=== PATIENT | male | born 1950 | race Caucasian/White ===

== ENCOUNTER 2020-08-29 13:37 | Emergency (ER) | payer OTHER, SELFPAY ==
[2020-08-29 13:40] VITALS: BP 135/103; PULSE 88; RESP 15; TEMP 36.9; O2SAT 98; BMI 19.2
--- NOTE | 2020-08-29 13:54 | ED.GENADULT ---
HPI - General Adult General Chief complaint: Skin/Abscess/Foreign Body Stated complaint: Rash From Head to Toe, Losing Teeth Time Seen by Provider: 08/29/20 13:39 Source: patient Mode of arrival: Ambulatory Limitations: no limitations History of Present Illness HPI narrative: Patient is a 70-year-old male. Has had radiation secondary to head and neck cancer many years ago. He states that he was told that his teeth would start to have problems at some point in the future and he states that over the past several weeks he has noticed that his teeth have been following up. He states he is attempted to call intact the [place] and has also tried to contact local dental providers but has not been able to get in to see anyone. He denies any pain. He is also here for a rash. He states that several weeks ago it started with a rash on his right lower extremity and since that time and has progressed to the rest of his body. He denies any fevers. No recent travel. No new exposures. No recent antibiotics. States has been using topical steroids without any improvement. He states that it is itching. He has not followed up with his primary doctor regarding his Related Data Previous Rx's Medication Instructions Recorded prednisone 40 mg PO DAILY 7 Days #14 tab 08/29/20 Allergies Allergy/AdvReac Type Severity Reaction Status Date / Time No Known Drug Allergies Allergy Verified 08/29/20 13:45 Review of Systems Constitutional Constitutional: Denies fever(s) ENT Comments: Teeth falling out Cardiovascular Cardiovascular: Denies chest pain and Denies dyspnea Respiratory Respiratory: Denies dyspnea Gastrointestinal Gastrointestinal: Denies abdominal pain, Denies nausea and Denies vomiting Genitourinary Genitourinary: Denies dysuria Genitourinary: Denies dysuria Musculoskeletal Musculoskeletal: Denies arthralgias and Denies myalgias Integumentary/Breasts Skin/Breast: Reports pruritus and Reports rash Neurologic Neurologic: Denies behavioral changes Psychiatric Psychiatric: Denies behavioral changes Hematologic/Lymphatic Hematologic/Lymphatic: Denies easy bleeding and Denies easy bruising Allergic/Immunologic Allergic/Immunologic: Denies urticaria Patient History Medical History Lung cancer Social History Smoking Status: Unknown if ever smoked Smoking Status: Unknown if ever smoked alcohol intake frequency: holidays/special occasions only Substance Use Type: does not use Exam Initial Vital Signs Initial Vital Signs: Vital Signs Temperature 98.5 F 08/29/20 13:40 Pulse Rate 88 08/29/20 13:40 Respiratory Rate 15 08/29/20 13:40 Blood Pressure 135/103 H 08/29/20 13:40 Pulse Oximetry 98 08/29/20 13:40 Const General: cooperative Limitations: mental status not altered HENMT Head: normal to inspection and normocephalic Mouth: oral mucosae normal and tongue normal Teeth and gingiva: poor dentition and other (Multiple missing teeth) Resp Effort & Inspection: normal respiratory effort Cardio Rate: regular rate Skin Other: Patient has areas of purpura located on bilateral lower extremities in punctate red lesions located on his abdomen and back and upper neck. No pustules. No vesicles. Neuro General: patient alert and patient awake Extrem General: capillary refill normal Psych Appearance: grossly normal and well kempt Course Orders Ordered: ED Orders 08/29/20 14:00 Basic Metabolic Panel Stat Complete Blood Count AUTO DIFF Stat Vital Signs Vital signs: Vital Signs - 8 hr 08/29/20 13:40 Temperature 98.5 F Pulse Rate 88 Respiratory Rate 15 Blood Pressure 135/103 H Pulse Oximetry 98 Medical Decision Making Medical Records Medical records reviewed: Yes I reviewed the patient's medical records. Lab Data Lab results reviewed: Yes I reviewed the patient's lab results. Result diagrams: 08/29/20 14:00 08/29/20 14:00 Labs: Lab Results 08/29/20 08/29/20 Range/Units 14:00 14:00 WBC 6.7 (4.5-11.0) X10^3/uL RBC 5.18 (4.5-5.9) X10^6/uL Hgb 14.1 (13.5-17.5) g/dL Hct 42.6 (41-53) % MCV 82.2 (80-100) fL MCH 27.3 (26-34) PG MCHC 33.2 (30-36) % RDW 13.7 (11.6-14.8) % Plt Count 227 (150-400) X10^3/uL Neut % (Auto) 72.1 (50-75) % Lymph % (Auto) 14.0 L (25-40) % [place] % (Auto) 7.2 (3-14) % Eos % (Auto) 5.7 H (2-4) % Baso % (Auto) 1.0 (0-2) % Neut # (Auto) 4800 (6776-1653) /uL Lymph # (Auto) 900 L (7066-5192) /uL [place] # (Auto) 500 (0-900) /uL Eos # (Auto) 400 (0-450) /uL Baso # (Auto) 100 (0-100) /uL Sodium 134 L (137-145) mmol/L Potassium 4.3 (3.4-5.1) mmol/L Chloride 102 (98-107) mmol/L Carbon Dioxide 27 (22-32) mmol/L BUN 22 H (9-20) mg/dL Creatinine 1.01 (0.66-1.25) mg/dL Estimated GFR > 60.0 (>60) mL/min BUN/Creatinine Ratio 21.8 (6-22) Glucose 104 (80-110) mg/dL Calcium 9.4 (8.4-10.2) mg/dL MDM Narrative Medical decision making narrative: Unfortunately I cannot provide any further assistance with regard to his dental issues. Informed him that [facility] or he could contact local dentists in the area to get in for further evaluation. He has no signs of any abscesses or infections currently. No indication for antibiotics. Unsure the exact etiology of his rash. His platelets are unremarkable. Low suspicion for ITP/HUS/TTP/[place] spotted fever/Lyme disease. His exam is not consistent with anaphylaxis. Will start the patient on a daily steroid for the next week. We also discussed the use of antihistamines. Informed him that he should contact a physics faculty member for follow-up as this may need a biopsy for definitive diagnosis. He was given strict return precautions. He expressed understanding and agreement. Discharge Plan Departure Patient Disposition: Home Clinical Impression: Rash, Teeth missing Instructions: DI for Rash Activity Restrictions/Additional Instructions: The prescription for steroids was electronically transmitted to [facility] in [place]. I do recommend that you also start on Zyrtec. You can purchase this [id number]. Take it daily as directed. You can also use topical Benadryl. You can also purchase [id number]. With regard to your dental issues I do recommend that [facility] and also you can contact local dentist to get an appointment. Also recommend that you talk with the [facility] to start working on a referral to see Dermatology as this may be necessary for definitive diagnosis of your rash. Return to the emergency department for any worsening rash, fevers, problems breathing or any other new or worsening symptoms Prescriptions: New prednisone 20 mg tablet 40 mg PO DAILY 7 Days Qty: 14 RF: 0
--- NOTE | 2020-08-29 14:06 | PC.NURSE ---
Pt reports that for the past month he has had this red, asymetric, blotchy, non-raised, itchy rash that started on his lower extremities and is now over his whole body. Does not improve with Benadryl. Pt is also concerned that he has lost two teeth but he had Chemo/radiation 2 yrs ago and his oncologist said that this would happen. Pt [facility] to come [facility] if the rash had not resolved, however they have not seen the rash for quite some time.
[2020-08-29 14:11] LABS: Add Manual Diff / Slide Review NO; Basophils Absolute Auto 100 /uL (0-100); Eosinophils Absolute Auto 400 /uL (0-450); Eosinophils Percent Auto 5.7 % (2-4); Hematocrit 42.6 % (41-53); Hemoglobin 14.1 g/dL (13.5-17.5); Lymphocytes Absolute Auto 900 /uL (1100-4500); Mean Corpuscular HGB Conc 33.2 % (30-36); Mean Corpuscular Hemoglobin 27.3 PG (26-34); Mean Corpuscular Volume 82.2 fL (80-100); Monocytes Absolute Auto 500 /uL (0-900); Monocytes Percent Auto 7.2 % (3-14); Neutrophils Absolute Auto 4800 /uL (1500-7000); Neutrophils Percent Auto 72.1 % (50-75); Platelet Count 227 X10^3/uL (150-400); Red Blood Cell Count 5.18 X10^6/uL (4.5-5.9); Red Cell Distribution Width 13.7 % (11.6-14.8); White Blood Cell Count 6.7 X10^3/uL (4.5-11.0)
[2020-08-29 14:22] LABS: BUN Creatinine Ratio 21.8 (6-22); Blood Urea Nitrogen 22 mg/dL (9-20); Calcium 9.4 mg/dL (8.4-10.2); Carbon Dioxide 27 mmol/L (22-32); Chloride 102 mmol/L (98-107); Estimated Glomerular Filt Rate > 60.0 mL/min (>60); Glucose 104 mg/dL (80-110); HEMOLYSIS < 15 (0-50); Potassium 4.3 mmol/L (3.4-5.1); Sodium 134 mmol/L (137-145)
[2020-08-29 15:02] VITALS: BP 117/71; PULSE 71; RESP 16; O2SAT 98
== END 2020-08-29 15:02 | disposition home or self-care (01) ==
PROVIDERS: Emergency Provider Emergency Medicine
DX: R21 Rash and other nonspecific skin eruption (principal); K08.109 Complete loss of teeth, unspecified cause, unspecified class
CPT/HCPCS: 36415; 80048; 85025; 99283

== ENCOUNTER 2020-09-03 12:53 | Emergency (ER) | payer OTHER, SELFPAY ==
[2020-09-03 13:06] VITALS: BP 111/62; PULSE 82; RESP 15; TEMP 36.6; O2SAT 98; BMI 19.5
--- NOTE | 2020-09-03 14:27 | ED.ALLEREA ---
HPI - Allergic Reaction <SUZIE Phillips - Last Filed: 09/03/20 17:33> General Chief complaint: Allergic Reaction Stated complaint: ?reaction to med given on 08/29/20 Time Seen by Provider: 09/03/20 13:52 Source: patient Mode of arrival: Ambulatory Limitations: no limitations History of Present Illness HPI narrative: This is a 70-year-old male, past medical history significant for lung cancer, presents to ED for not improving itching generalized rash. Patient was evaluated in ED here 5 days ago and discharged to home with oral prednisone and Zyrtec and he continue to use hydrocortisone cream 1% and added Benadryl cream. Patient reports after he had used Benadryl cream on left arm the redness and itching became worse. Patient denies fever, chills, nausea, vomiting, short of breath, chest pain, oropharyngeal swelling. Patient reports this has been going on for months and noticed recurring similar symptoms every several years. Patient does not remember but was prescribed with cream by his previous doctor in [place] which clear of his symptoms. Patient thinks his symptoms are from Agent Walker. Patient reports has not been sleeping well due to intense itching. Patient denies recent travel, using antibiotic medications, or new exposure. Patient reached out any time to [facility] to set up follow-up appointment but unsuccessful so far. He awares should be evaluated by triple valve tester. Related Data Previous Rx's Medication Instructions Recorded hydroxyzine HCl 25 mg PO BEDTIME PRN #10 tab 09/03/20 prednisone 20 mg PO DAILY 7 Days #7 tab 09/03/20 triamcinolone acetonide 1 applic TOPICAL TID PRN #160 g 09/03/20 Allergies Allergy/AdvReac Type Severity Reaction Status Date / Time No Known Drug Allergies Allergy Verified 09/03/20 13:11 Review of Systems <SUZIE Phillips - Last Filed: 09/03/20 17:33> Review of Systems Narrative: General: Denies fever, chills, fatigue, malaise, sweats. HEENT: Denies sinus pain, ear pain, sore throat, difficulty swallowing, dizziness. Respiratory: Denies dyspnea, cough, wheezing, hemoptysis, sputum. Cardiovascular: Denies chest pain, palpitations, orthopnea, edema. Gastrointestinal: Denies nausea, vomiting, abdominal pain, diarrhea, constipation, melena. : Denies dysuria, frequency, incontinence, hematuria, urinary retention. Musculoskeletal: Denies weakness, joint pain or bony pain. Skin: See HPI Patient History <SUZIE Phillips - Last Filed: 09/03/20 17:33> Medical History Lung cancer Social History Smoking Status: Unknown if ever smoked Smoking Status: Unknown if ever smoked alcohol intake frequency: holidays/special occasions only Substance Use Type: does not use Exam <SUZIE Phillips - Last Filed: 09/03/20 17:33> Narrative Exam Narrative: General appearance: well developed, well nourished, in no acute distress. Head: normocephalic, atraumatic, no scalp lesions, non-tender. ENT: Hearing grossly intact. Airway patent. Neck/Thyroid: neck supple, full range of motion, no visible masses or meningeal signs. No JVD, non-tender without lymphadenopathy. Skin: thick bright red erythematous and edematous patch on left upper extremity without warmth or drainage. Slightly last erythematous rash on left upper extremity, around lateral neck. There also erythematous rash on bilateral legs which are less erythematous and edematous. No suspicious rashes, lesions over visible areas. Warm and dry and appropriate color for ethnicity. Heart: no clubbing, no cyanosis, no edema. Lungs: Breathing even and unlabored. No stridor. No accessory muscles used. Able to speak in full sentences. Chest: normal shape and expansion. Abdomen: non-obese, non-distended. Neurologic: alert and oriented. Cognitive exam, [employer] and PNS grossly intact on informal exam. Psych: good eye contact, normal affect. Initial Vital Signs Initial Vital Signs: Vital Signs Temperature 97.8 F 09/03/20 13:06 Pulse Rate 82 09/03/20 13:06 Respiratory Rate 15 09/03/20 13:06 Blood Pressure 111/62 09/03/20 13:06 Pulse Oximetry 98 09/03/20 13:06 <Flor Diop DO - Last Filed: 09/06/20 13:47> Initial Vital Signs Initial Vital Signs: Vital Signs Temperature 97.8 F 09/03/20 13:06 Pulse Rate 82 09/03/20 13:06 Respiratory Rate 15 09/03/20 13:06 Blood Pressure 111/62 09/03/20 13:06 Pulse Oximetry 98 09/03/20 13:06 Scores [facility] - Last Filed: 09/03/20 17:33> GCS Maria Teresa coma scale eye opening: Spontaneous Maria Teresa coma scale verbal response: Orientated Maria Teresa coma scale motor response: Obey commands [place] coma scale total score: 15 qSOFA Altered Mental Status (GCS <15): No Respiratory rate greater than/equal to 22: No Systolic blood pressure less than or equal to 100: No qSOFA Total: 0 0-1 Not High Risk 1-3 High risk Course <[facility] - Last Filed: 09/03/20 17:33> Vital Signs Vital signs: Vital Signs - 8 hr 09/03/20 13:06 09/03/20 14:30 Temperature 97.8 F Pulse Rate 82 80 Respiratory Rate 15 16 Blood Pressure 111/62 106/71 Pulse Oximetry 98 97 <Flor Diop DO - Last Filed: 09/06/20 13:47> Vital Signs Vital signs: Vital Signs - 8 hr 09/03/20 13:06 09/03/20 14:30 Temperature 97.8 F Pulse Rate 82 80 Respiratory Rate 15 16 Blood Pressure 111/62 106/71 Pulse Oximetry 98 97 MDM - Allergic Reaction <[facility] - Last Filed: 09/03/20 17:33> Differential Diagnosis Differential diagnosis: Likely allergic reaction, contact dermatitis, adverse reaction to drug and urticaria Medical Records Attestation: I reviewed the patient's medical records. MDM Narrative Medical decision making narrative: This is a 70-year-old male who presents to ED for the 2nd time in 5 days with chief complain of not improving pruritus rash. Patient is afebrile with within normal vital signs. Physical exam is not consistent with reinforced with cellulitis/infection. Patient discharged to home with moderate strength of steroid cream to use as little as possible up to 2 to 3 times a day as needed for symptoms. Added Atarax for night use for itching as needed. And patient discharged to home with another 7 day course of hydrating prednisone p.o.. [facility] for [facility] evaluation and and treatment. We discussed return precautions and he verbalized understanding in agreement with the treatment plan. Discharge Plan Departure Patient Disposition: Home Clinical Impression: Pruritic erythematous rash Instructions: DI for Hives Activity Restrictions/Additional Instructions: You have been diagnosed with [generalized pruritus rash]. What to do: *Take your medications as directed. Please try triamcinolone 0.1% cream for itching rash up to 2 to 3 times a day as needed as little as possible. You can take hydroxyzine at night to help with sleep. Please take precautions it can cause drowsiness. I extended prednisone another 7 day but half of the current dose. Please take [id number] omeprazole earlier if you start having epigastric pain with taking prednisone. *Follow up with your primary care provider in 2-3 days, call for an appointment. Let them know you were seen in the ED and that we asked you to be seen in follow up. Please continue to attempt to follow-up with triple valve tester. *Return to ED if you have any new, worsening, or concerning symptoms, such as [worsening symptoms, chest pain, breathing difficulty, unable to tolerate fluids, fever or any acute concerns]. Prescriptions: New prednisone 20 mg tablet 20 mg PO DAILY 7 Days Qty: 7 RF: 0 hydroxyzine HCl 25 mg tablet 25 mg PO BEDTIME PRN (Reason: itching) Qty: 10 RF: 0 triamcinolone acetonide 0.1 % cream 1 applic topical TID PRN (Reason: itching rash) Qty: 160 RF: 0 Referrals: [facility] [Outside] <Flor Diop, - Last Filed: 09/06/20 13:47> [facility] ED Attending Krystianature Attestation: I was immediately available in the department for consultation. Documentation has been reviewed. I agree with assessment and plan.
[2020-09-03 14:30] VITALS: BP 106/71; PULSE 80; RESP 16; O2SAT 97
== END 2020-09-03 14:32 | disposition home or self-care (01) ==
PROVIDERS: Emergency Provider Nurse Practitioner Family
DX: L29.8 Other pruritus (principal); Z85.118 Personal history of other malignant neoplasm of bronchus and lung
CPT/HCPCS: 99281